=== PATIENT | male | born 1955 | race Two or more races ===

== ENCOUNTER → 2024-03-09 | Outpatient (CLI) | payer MEDICARE, BC, SELFPAY ==
--- NOTE | 2024-03-09 13:08 | XR_ITS ---
Examination: PA lateral chest 2 views TECHNIQUE: Upright PA lateral chest 2 views Exam date and time: March 09, 2024 1411 hours INDICATIONS: Smoking history years FINDINGS: Normal heart size Moderate hyperexpansion No pneumonia or pulmonary edema Prominent osteopenia IMPRESSION: COPD No pneumonia or pulmonary edema
--- NOTE | 2024-03-09 13:08 | XR_ITS ---
Examination: Sinus series 3 views TECHNIQUE: Homero Douglas submentovertex sinus series 3 views Exam date and time: March 09, 2024 at 1411 hours INDICATIONS: Acute sinus pressure and pain one month FINDINGS: Prominent sinus disease, chronic in the frontal ethmoid air cells No cortical bone destruction No deviation nasal septum IMPRESSION: Prominent chronic frontal ethmoid sinusitis
== END | disposition home or self-care (01) ==
LOC: SDIM 12:52
PROVIDERS: PCP Family Medicine; Referring Provider Family Medicine; Visit Provider Family Medicine
DX: J32.8 Other chronic sinusitis (principal); J44.9 Chronic obstructive pulmonary disease, unspecified; R05.3 Chronic cough
CPT/HCPCS: 70220; 71046

== ENCOUNTER → 2024-03-27 | Outpatient (CLI) | payer MEDICARE, BC, SELFPAY ==
[2024-03-27 09:36] LABS: Basophils # (Auto) 0.1 Thou/mm3 (0.0-0.2); Basophils % (Auto) 1 % (0-2.5); Eosinophils # (Auto) 0.1 Thou/mm3 (0.0-0.5); Eosinophils % (Auto) 1 % (0-10); Hematocrit 42.5 % (41.0-53.0); Hemoglobin 14.4 g/dL (13.5-16.0); Immature Granulocytes % (Auto) 0 % (0-0); Immature Granulocytes Auto 0.04 Thou/mm3 (0.00-0.00); Lymphocytes # (Auto) 2.5 Thou/mm3 (1.0-4.8); Lymphocytes % (Auto) 26 % (10-50); Mean Corpuscular HGB Conc 33.9 g/dl (31.0-37.0); Mean Corpuscular Hemoglobin 30.5 pg (25.0-35.0); Mean Corpuscular Volume 90 fL (80-100); Monocytes # (Auto) 0.8 Thou/mm3 (0.0-0.8); Monocytes % (Auto) 9 % (0-12); Neutrophils % (Auto) 63 % (37-80); Nucleated Red Blood Cell % 0 /100 WBC (0); Platelet Count 305 Thou/mm3 (140-440); RDW Standard Deviation 43.8 fL (35.1-43.9); Red Blood Count 4.72 Miln/mm3 (4.50-5.90); White Blood Count 9.5 Thou/mm3 (3.8-10.6)
[2024-03-27 09:44] LABS: Glucose Estimated Average 128 mg/dL (80-131); Hemoglobin A1C 6.1 % Hgb (4.8-6.0)
[2024-03-27 09:47] LABS: Prostate Specific Antigen 0.64 ng/mL (0-4.00)
[2024-03-27 09:52] LABS: Alanine Aminotransferase 23 U/L (10-49); Albumin, Serum 4.2 gm/dL (3.4-4.8); Albumin/Globulin Ratio 1.3 (1.2-2.2); Alkaline Phosphatase 66 U/L (46-116); Anion Gap 6 (7-16); Aspartate Amino Transferase < 8 U/L (0-34); BUN/Creatinine Ratio 12 Ratio (12-20); Bilirubin,Total 0.4 mg/dL (0.3-1.2); Blood Urea Nitrogen 12 mg/dL (9-23); Calcium 9.7 mg/dL (8.3-10.6); Calcium (Corrected) 9.7 mg/dL (8.5-10.1); Carbon Dioxide 28.7 mMol/L (20.0-31.0); Cardiac Risk Estimate 3.7 RATIO (4.0-6.7); Chloride 103 mMol/L (98-107); Cholesterol 191 mg/dL (132-200); Globulin 3.3 gm/dL (2.3-3.5); Glucose 101 mg/dL (74-106); HDL Cholesterol 51 mg/dL (40-60); LDL Cholesterol,Calculated 107 mg/dL (0-130); Osmolality,Calculated 275 (275-295); Potassium 4.4 mMol/L (3.4-5.1); Sodium 138 mMol/L (136-145); Total Protein 7.5 gm/dL (5.7-8.2); Triglycerides 165 mg/dL (30-150); eGFR > 60 See Note
== END | disposition home or self-care (01) ==
PROVIDERS: PCP Family Medicine; Referring Provider Family Medicine; Visit Provider Family Medicine
DX: R13.14 Dysphagia, pharyngoesophageal phase (principal); J01.90 Acute sinusitis, unspecified; K21.9 Gastro-esophageal reflux disease without esophagitis; R79.9 Abnormal finding of blood chemistry, unspecified
CPT/HCPCS: 36415; 80053; 80061; 83036; 84153; 85025

== ENCOUNTER 2024-12-19 23:46 | Emergency (ER) | payer MEDICARE, BC, SELFPAY ==
[2024-12-19 23:47] VITALS: BMI 26.8
[2024-12-19 23:49] VITALS: BP 165/94; PULSE 64; RESP 17; TEMP 37; O2SAT 95
--- NOTE | 2024-12-19 23:52 | EKG_ITS ---
[facility] Test Date: 2024-12-19 Pat Name: THOMAS WHITMORE Department: Room: - Gender: Male [employer] Consultant: : [id number] Requested By: ED Temporary Provider Order Number: [id number] Reading MD: ED Temporary Provider Measurements Intervals Cecil Rate: 60 P: 66 MD: 132 QRS: 37 QRSD: 86 T: 59 QT: 412 QTc: 413 Interpretive Statements SINUS RHYTHM WITH OCCASIONAL VENTRICULAR PREMATURE COMPLEXES No previous ECG available for comparison /[id number]/[id number].pdf
--- NOTE | 2024-12-20 00:29 | XR_ITS ---
CLINICAL INDICATION: Chest tightness, mild shortness of breath that started last night Exam date and time: 12/20/2024, 12:29 a.m. TECHNIQUE: XR chest 1V COMPARISON: Chest radiographs 03/09/2024 FINDINGS: The cardiomediastinal silhouette is within normal limits. No airspace opacities suggestive of pneumonia. No mass detected. No pleural effusion or pneumothorax. No acute osseous abnormality detected. Multilevel thoracic spondylosis with osteophyte formation is reidentified. IMPRESSION: No radiographic evidence for acute cardiopulmonary abnormality. No significant interval change since the comparison study. - This report was generated utilizing speech recognition software. -
--- NOTE | 2024-12-20 00:29 | PD.EDRME ---
Rapid Medical Screening Exam RME Arrival date/time: 12/19/24 23:46 Chief Complaint: Chest Pain Time Seen by Provider: 12/20/24 00:12 Vital signs: Vital Signs Temperature 98.6 F 12/19/24 23:49 Pulse Rate 64 12/19/24 23:49 Respiratory Rate 17 12/19/24 23:49 Blood Pressure 165/94 H 12/19/24 23:49 Pulse Oximetry (%) 95 12/19/24 23:49 Oxygen Delivery Method Room Air 12/19/24 23:49 RME Narrative: Chest tightness, mild shortness of breath that initiated at 2330 last night. Symptoms resolved at ED arrival. Exam: Well-appearing, no acute distress Clinical Impression: Chest tightness
[2024-12-20 00:46] LABS: Basophils # (Auto) 0.1 Thou/mm3 (0.0-0.2); Basophils % (Auto) 1 % (0-2.5); Eosinophils # (Auto) 0.1 Thou/mm3 (0.0-0.5); Eosinophils % (Auto) 1 % (0-10); Hematocrit 38.1 % (41.0-53.0); Hemoglobin 12.7 g/dL (13.5-16.0); Immature Granulocytes Auto 0.01 Thou/mm3 (0.00-0.00); Lymphocytes # (Auto) 2.9 Thou/mm3 (1.0-4.8); Lymphocytes % (Auto) 38 % (10-50); Mean Corpuscular HGB Conc 33.3 g/dl (31.0-37.0); Mean Corpuscular Hemoglobin 30.2 pg (25.0-35.0); Mean Corpuscular Volume 91 fL (80-100); Monocytes # (Auto) 0.6 Thou/mm3 (0.0-0.8); Monocytes % (Auto) 8 % (0-12); Neutrophils # (Auto) 3.9 Thou/mm3 (1.8-7.7); Neutrophils % (Auto) 51 % (37-80); Nucleated Red Blood Cell # 0.00 Thou/mm3 (0.00-0.00); Nucleated Red Blood Cell % 0 /100 WBC (0); Platelet Count 227 Thou/mm3 (140-440); RDW Standard Deviation 45.1 fL (35.1-43.9); Red Blood Count 4.20 Miln/mm3 (4.50-5.90); White Blood Count 7.6 Thou/mm3 (3.8-10.6)
[2024-12-20 01:04] LABS: B-Type Natriuretic Peptide 73 pg/mL (0-100)
[2024-12-20 01:05] LABS: Alanine Aminotransferase 13 U/L (10-49); Albumin, Serum 4.2 gm/dL (3.4-4.8); Albumin/Globulin Ratio 1.5 (1.2-2.2); Alkaline Phosphatase 57 U/L (46-116); Anion Gap 8 (7-16); Aspartate Amino Transferase 18 U/L (0-34); BUN/Creatinine Ratio 12 Ratio (12-20); Bilirubin,Total 0.5 mg/dL (0.3-1.2); Blood Urea Nitrogen 11 mg/dL (9-23); Calcium 9.4 mg/dL (8.3-10.6); Calcium (Corrected) 9.4 mg/dL (8.5-10.1); Carbon Dioxide 29.0 mMol/L (20.0-31.0); Chloride 106 mMol/L (98-107); Creatinine (Component) 0.9 mg/dL (0.6-1.3); Estimated Creatinine Clearance 77.7 mL/min (>60); Globulin 2.8 gm/dL (2.3-3.5); Glucose 105 mg/dL (74-106); Osmolality,Calculated 284 (275-295); Potassium 4.1 mMol/L (3.4-5.1); Sodium 143 mMol/L (136-145); Total Protein 7.0 gm/dL (5.7-8.2); Troponin I < 0.002 ng/mL (0.0-0.045); eGFR > 60 See Note
[2024-12-20 03:39] VITALS: BP 142/72; PULSE 63; RESP 17; TEMP 36.4; O2SAT 96
[2024-12-20 03:43] LABS: Troponin I < 0.020 ng/mL (0.0-0.045)
--- NOTE | 2024-12-20 03:47 | EDNOTE_ITS ---
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 Patient states he was lying on his left side just prior to symptom onset. Reports mild sob 2/2 chest tightness. Symptoms lasted approximately 15 minutes then resolved at ED arrival. Patient is asymptomatic at this time. No fever, cough, nausea/vomiting, sweating, lightheadedness or syncope reported. 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 Related Data Home Medications ?Medication ?Instructions ?Recorded ?Confirmed dexlansoprazole 60 mg 60 mg PO QDAY ##0 12/28/14 capsule,biphase delayed release (Dexilant) Allergies Allergy/AdvReac Type Severity Reaction Status Date / Time No Known Allergies Allergy Verified 12/19/24 23:46 Review of Systems Review of Systems Systems Reviewed: All systems reviewed, normal except as documented Constitutional Constitutional: Denies chills and Denies fever(s) ENT Ears, Nose, Mouth, and Throat: Denies dizziness Cardiovascular Cardiovascular: Reports chest pain, Denies dyspnea, Denies lightheadedness, Denies palpitations and Denies syncope Respiratory Respiratory: Denies cough and Denies dyspnea Gastrointestinal Gastrointestinal: Denies nausea and Denies vomiting Neurologic Neurologic: Denies dizziness and Denies syncope Endocrine Endocrine: Denies palpitations Past Medical History Past Medical History GASTROINTESTINAL: Positive Gastroesophageal Reflux Disease Surgical History OTHER SURGICAL HX: denies past surgical history Social History SMOKING STATUS: Former smoker SUBSTANCE USE: does not use ALCOHOL: Former (last drink 10 years ago) ED Exam General Limitations: Present no limitations General appearance: Present alert and in no apparent distress Head Head exam: Present atraumatic and normocephalic Eye Eye exam: Present normal appearance, PERRL and EOMI ENT ENT exam: Present normal exam and mucous membranes moist Neck Neck exam: Present normal inspection and full ROM Chest Chest inspection: Present normal inspection and symmetric chest wall rise Respiratory Respiratory exam: Present normal lung sounds bilaterally; Absent respiratory distress Cardiovascular Cardiovascular exam: Present regular rate and normal rhythm Extremities Exam Extremities exam: Present normal inspection and full ROM; Absent pedal edema Neurological Exam Neurological exam: Present alert and oriented X3 Psychiatric Psychiatric exam: Present normal affect and normal mood Skin Skin exam: Present warm, dry, intact and normal color Course Quality Measures none Orders Category Date Time Status EKG (ED ONLY) *Do not use* NOW Care 12/19/24 23:52 Completed CXR [XR chest 1V] Stat Exams 12/20/24 00:29 Completed EKG (ED Only) Stat Exams 12/19/24 23:52 Draft BNP [B-Type Natriuretic Peptide] Stat Lab 12/20/24 00:40 Completed CBC Stat Lab 12/20/24 00:40 Completed CMP [Comprehensive Metabolic Panel] Stat Lab 12/20/24 00:40 Completed Troponin I Stat Lab 12/20/24 00:40 Completed Troponin I Stat Lab 12/20/24 03:16 Completed Vital Signs Vital signs: Vital Signs Temperature 98.6 F 12/19/24 23:49 Pulse Rate 64 12/19/24 23:49 Respiratory Rate 17 12/19/24 23:49 Blood Pressure 165/94 H 12/19/24 23:49 Pulse Oximetry (%) 95 12/19/24 23:49 Oxygen Delivery Method Room Air 12/19/24 23:49 Chest Pain MDM Narrative MDM Narrative:: 69yom presents to ED for left 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 Patient states he was lying on his left side just prior to symptom onset. Reports mild sob 2/2 chest tightness. Symptoms lasted approximately 15 minutes then resolved at ED arrival. Patient is asymptomatic at this time. No fever, cough, nausea/vomiting, sweating, lightheadedness or syncope reported. 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 Cardiac ED workup reassuring. Patient remained chest pain free during entire ED stay. Heart score of 2, low risk. Encouraged close follow-up with PCP or cardiology as needed. Stable for discharge, RTED precautions given. Patient data External records reviewed:: [facility] [place] previous records (Colonoscopy 12/11/2019) Clinical information provided by:: patient and spouse Social determinants that could affect healthcare access:: none Patient has the following chronic illnesses:: GERD How is presenting disease/condition affected by chronic disease/condition?: uneffected by Evaluation data The following diagnostics were reviewed and interpreted by me:: lab results, radiology exam(s) and EKG tracing(s) Lab and/or radiology exams considered but not ordered:: CTA chest: Do not suspect PE Interpretation Summary: No leukocytosis No hyperglycemia No PHILIPP Negative troponin x2 CXR: No acute process per my read Medications / Prescriptions Medications or Prescriptions considered but not ordered:: None Medication administrations:: None Consultations Consultation(s) initiated? (list below): No Diagnosis Chest Pain Differential Diagnosis: pneumothorax, stable angina, atypical chest pain, st elevation myocardial infarction and costochondritis Most likely diagnosis given after review of the tests above:: Chest pain Admission Indicated Admission indicated?: not indicated Admission Request Was there a request for admission?: No Disposition Plan Disposition Plan: Discharge Discharge Attestation Discharge Attestation: The patient and all family members were given an opportunity to ask questions and understood the discharge instructions. Discharge instructions specifically effects, indications for sooner follow up or return to the emergency department, and the expected course of current diagnosis. Patient condition: Stable Discharge Plan Plan Patient Disposition: HOME (Self Care) Patient condition on transfer: Stable Prescriptions/Referrals Prescriptions/Med Rec: No Action dexlansoprazole [Dexilant] 60 MG capsule,biphase delayed releas 60 mg PO QDAY Qty: 0 Referrals: Efrain Larry MD [Referring Provider, Cardiology] Referral Note: Call to schedule an appointment as needed Ho Witt MD [Primary Care Provider, Family Practice] - In 1 week Problem List Clinical Impression: Chest pain Patient/Caregiver Discharge Instructions Education Materials: ED Chest Pain, Uncertain Cause Print Language: Sami Stand Alone Forms: Caryn Award Info., Patient Portal Info Letter PA/LAITH Supervising Physician PA/LAITH Supervising Physician: Nawaf
== END 2024-12-20 04:01 | disposition home or self-care (01) ==
PROVIDERS: Physician Assistant; Emergency Provider Emergency Medicine; PCP Family Medicine
DX: R07.9 Chest pain, unspecified (principal)
CPT/HCPCS: 36415; 71045; 80053; 83880; 84484; 85025; 93005; 99283